=== PATIENT | female | born 2000 | race Caucasian/White ===

== ENCOUNTER 2021-02-05 06:31 | Emergency (ER) | payer SELFPAY ==
[2021-02-05] MEDS ORDERED: Dexamethasone 10 MG/ML VIAL ONE (07:21)
== END 2021-02-05 09:48 | disposition home or self-care (01) ==
LOC: ERS 06:31
DX: L23.7 Allergic contact dermatitis due to plants, except food (principal)
CPT/HCPCS: 96372; 99282; J1100